=== PATIENT | female | born 1995 | race Caucasian/White ===

== ENCOUNTER 2020-01-21 16:04 | Emergency (ER) | payer BC ==
[~2020-01-21] VITALS: Ht 149.9 cm; Wt 75.3 kg
[2020-01-21] MEDS ORDERED: CEPH250C PO (16:30)
[2020-01-21 16:31] VITALS: BP_SYST 110
[2020-01-21] MEDS ORDERED: [UNRECOGNIZED DRUG - CODE] PO (16:31)
[2020-01-21] MEDS ORDERED: TYC3 PO (16:31)
[2020-01-21] MEDS ORDERED: BACITRACIN 1 GM OINT TP ONE (16:33)
== END 2020-01-21 16:43 | disposition home or self-care (01) ==
LOC: SED 16:04
DX: Z48.00 Encounter for change or removal of nonsurgical wound dressing (principal); E03.9 Hypothyroidism, unspecified
CPT/HCPCS: 99282

== ENCOUNTER 2021-01-13 12:33 | Emergency (ER) | payer BC ==
[~2021-01-13] VITALS: Ht 149.9 cm; Wt 70.3 kg
[~2021-01-13 12:33] MED LIST: CEPH250C PO; TYC3 PO; [UNRECOGNIZED DRUG - CODE] PO
[2021-01-13 13:00] VITALS: BP_SYST 153
[2021-01-13 14:47] LABS: BILIRUBIN,URINE NEGATIVE (NEGATIVE); BLOOD, URINE NEGATIVE (NEGATIVE); CLARITY/URINE CLEAR (CLEAR); COLOR,URINE YELLOW (YELLOW); GLUCOSE,URINE NEGATIVE (NEGATIVE); KETONES,URINE NEGATIVE (NEGATIVE); LEUKOCYTE ESTERASE ,URINE NEGATIVE (NEGATIVE); NITRITE, URINE NEGATIVE (NEGATIVE); PH,URINE 6.5 (5.0-8.0); PROTEIN URINE TRACE (NEGATIVE); UROBILINOGEN,URINE 0.2 (0.2-1.0)
[2021-01-13] MEDS ORDERED: NACL 0.9% 1,000 ML IV ONE (15:00)
[2021-01-13] MEDS ORDERED: KETOROLAC TROMETHAMINE 30 MG VIAL IVP ONE (15:00)
[2021-01-13 15:18] LABS: BASOPHILS % (AUTO) 0.3 % (0.0-2.0); EOSINOPHILS # (AUTO) 0.1 K/uL (0.0-0.4); EOSINOPHILS % (AUTO) 0.7 % (0.0-4.0); HEMATOCRIT 41.3 % (36-48); HEMOGLOBIN 13.6 g/dL (12.0-16.0); LYMPHOCYTES # (AUTO) 3.7 K/uL (1.0-5.5); MEAN CORPUSCULAR HEMOGLOBIN 29 pg (27-31); MEAN CORPUSCULAR HGB CONC 33 % (32-36); MEAN CORPUSCULAR VOLUME 89 fL (79.0-98.0); MONOCYTES % (AUTO) 7.2 % (1.7-9.3); NEUTROPHILS # (AUTO) 8.5 K/uL (1.8-7.7); NEUTROPHILS % (AUTO) 63.8 % (40.0-70.0); PLATELET COUNT (AUTO) 257 K/uL (130-430); RED BLOOD CELL COUNT(AUTO) 4.62 MIL/uL (4.2-6.2); WHITE BLOOD COUNT (AUTO) 13.4 K/uL (4.8-10.8)
[2021-01-13 15:38] LABS: CALCIUM 9.1 mg/dL (8.4-11.0); CREATININE 0.93 mg/dL (0.55-1.30)
[2021-01-13 15:44] LABS: ALBUMIN 3.6 g/dL (3.4-4.8); TOTAL BILIRUBIN 0.7 mg/dL (0.0-1.0)
[2021-01-13] MEDS ORDERED: metroNIDAZOLE 500 mg/NS 100 ML IV ONE (18:00)
[2021-01-13] MEDS ORDERED: METR500T PO (18:08)
[2021-01-13 18:20] VITALS: BP_SYST 134
== END 2021-01-13 18:20 | disposition home or self-care (01) ==
LOC: SED 12:33
DX: N76.0 Acute vaginitis (principal); E03.9 Hypothyroidism, unspecified; Z79.899 Other long term (current) drug therapy
CPT/HCPCS: 36415; 76856; 80053; 81003; 81025; 85025; 87210; 87491; 87591; 96361; 96374; 99284; J1885; J7030

== ENCOUNTER 2023-12-21 19:13 | Emergency (ER) | payer BC ==
[~2023-12-21] VITALS: Ht 149.9 cm; Wt 72.6 kg
[~2023-12-21 19:13] MED LIST changes: +METR500T PO
[2023-12-21 19:36] VITALS: BP_SYST 133; PULSE 76; RESP 16; TEMP 98.7; O2SAT 98
[2023-12-21 22:40] VITALS: BP_SYST 133; PULSE 76; RESP 16; TEMP 98.7; O2SAT 98
== END 2023-12-21 22:40 | disposition home or self-care (01) ==
LOC: SED 19:13
DX: N63.10 Unspecified lump in the right breast, unspecified quadrant (principal); Z53.21 Procedure and treatment not carried out due to patient leaving prior to being seen by health care provider
CPT/HCPCS: 99281